=== PATIENT | female | born 1945 | race Caucasian/White ===

== ENCOUNTER 2018-04-09 11:23 | Inpatient (IN) | payer MEDICAID, MEDICARE ==
[~2018-04-09] VITALS: Ht 160 cm; Wt 92.1 kg
[2018-04-09] MEDS ORDERED: METF-815 PO (11:35)
[2018-04-09] MEDS ORDERED: GLIP5TAB12 PO (11:35)
[2018-04-09] MEDS ORDERED: PROP80CA43 PO (11:35)
[2018-04-09] MEDS ORDERED: OMEP10CA4 PO (11:35)
[2018-04-09] MEDS ORDERED: SITA25TA3 PO (11:35)
[2018-04-09] MEDS ORDERED: LOSA25TA12 PO (11:35)
[2018-04-09] MEDS ORDERED: SODIUM CHLORIDE 0.9% 1,000 ML IV ONE (12:06)
[2018-04-09] MEDS ORDERED: ONDANSETRON HCL 4MG/2ML INJ IV STA (12:06)
[2018-04-09] MEDS ORDERED: FAMOTIDINE 20MG/2ML VIAL IV STA (12:06)
[2018-04-09] MEDS ORDERED: MORPHINE SULFATE 4 MG/ML CPJ (NOT FOR IM USE) IV ONE (12:15)
[2018-04-09 12:35] LABS: BASOPHILS % 0.6 % (0.0-2.0); EOSINOPHILS % 1.2 % (0.0-5.0); HEMATOCRIT. 35.2 % (36.0-48.0); HEMOGLOBIN. 11.9 g/dL (12.0-16.0); LYMPHOCYTES % 13.7 % (20.0-50.0); MEAN CORPUSCULAR HEMOGLOBIN 31.1 pg (28.0-32.0); MEAN PLATELET VOLUME 9.9 fl (7.4-10.4); MONOCYTES % 11.5 % (2.0-8.0); PLATELET 111 x1000/uL (130-400); RED BLOOD CELL COUNT 3.83 mill/uL (4.2-5.4); RED CELL DISTRIBUTION WIDTH 15.6 % (11.6-14.6)
[2018-04-09 12:44] LABS: CHLORIDE 99 mEq/L (98-107)
[2018-04-09] MEDS ORDERED: DEXTROSE 50% WATER 50ML SYRINGE IV PRN (14:00)
[2018-04-09] MEDS ORDERED: HYDRALAZINE 20MG/ML VIAL IV PRN (14:00)
[2018-04-09] MEDS: ONDANSETRON HCL 4MG/2ML INJ IV PRN (19:13)
[2018-04-09] MEDS: MORPHINE SULFATE 4 MG/ML CPJ (NOT FOR IM USE) IV PRN ×2 (19:13→23:15)
[2018-04-09] MEDS: BLOOD SUGAR DIAGNOSTIC STRIP TEST SCH (21:00)
[2018-04-09 21:30] VITALS: BP 146/56
[2018-04-09 22:00] VITALS: BP 146/56
[2018-04-09] MEDS ORDERED: HYDRALAZINE 10 MG in SODIUM CHLORIDE 0.9% 49.5 ML IV PRN (22:30)
[2018-04-09] MEDS: INSULIN LISPRO 100 UNITS/ML SUBCUT SCH (23:30)
[2018-04-10] VITALS: BP 124/55
[2018-04-10 04:00] VITALS: BP 114/54
[2018-04-10] MEDS: DEXT 5%/0.45% NACL 1000ML 1,000 ML IV SCH ×3 (05:05→22:05)
[2018-04-10] MEDS: ONDANSETRON HCL 4MG/2ML INJ IV PRN ×3 (05:07→23:25)
[2018-04-10] MEDS: MORPHINE SULFATE 4 MG/ML CPJ (NOT FOR IM USE) IV PRN ×2 (05:11→10:43)
[2018-04-10 06:40] LABS: BASOPHILS % 0.5 % (0.0-2.0); EOSINOPHILS % 0.8 % (0.0-5.0); HEMATOCRIT. 33.3 % (36.0-48.0); LYMPHOCYTES % 10.1 % (20.0-50.0); MEAN CORPUSCULAR HEMOGLOBIN 30.7 pg (28.0-32.0); MEAN CORPUSCULAR VOLUME 92.8 fL (81.0-99.0); MEAN PLATELET VOLUME 10.3 fl (7.4-10.4); MONOCYTES % 13.3 % (2.0-8.0); NEUTROPHILS % 75.3 % (40.0-76.0); PLATELET 103 x1000/uL (130-400); RED BLOOD CELL COUNT 3.59 mill/uL (4.2-5.4); RED CELL DISTRIBUTION WIDTH 15.7 % (11.6-14.6)
[2018-04-10] MEDS: BLOOD SUGAR DIAGNOSTIC STRIP TEST SCH ×4 (07:30→21:00)
[2018-04-10] MEDS: INSULIN LISPRO 100 UNITS/ML SUBCUT SCH ×4 (07:50→22:30)
[2018-04-10 08:00] VITALS: BP 130/55
[2018-04-10] MEDS: PANTOPRAZOLE SODIUM 40 MG/VIAL IV SCH (09:13)
[2018-04-10 12:00] VITALS: BP 133/66
[2018-04-10] MEDS ORDERED: LACTULOSE 20G/30ML UDC PO PRN (13:45)
[2018-04-10] MEDS ORDERED: HYDROCODONE/ACETAMINOPHEN 5/325MG TABLET PO PRN (13:45)
[2018-04-10] MEDS ORDERED: BISACODYL 10MG SUPP PR PRN (13:45)
[2018-04-10 16:00] VITALS: BP 121/50
[2018-04-10 20:00] VITALS: BP 125/46
[2018-04-11] VITALS: BP 112/44
[2018-04-11 04:00] VITALS: BP 112/47
[2018-04-11] MEDS: METOCLOPRAMIDE HCL 10MG/2ML VIAL IV PRN (05:45)
[2018-04-11] MEDS: BLOOD SUGAR DIAGNOSTIC STRIP TEST SCH ×4 (05:53→21:51)
[2018-04-11] MEDS: DEXT 5%/0.45% NACL 1000ML 1,000 ML IV SCH (06:00)
[2018-04-11 08:00] VITALS: BP 118/58
[2018-04-11] MEDS: INSULIN LISPRO 100 UNITS/ML SUBCUT SCH ×4 (09:07→21:00)
[2018-04-11] MEDS: PANTOPRAZOLE SODIUM 40 MG/VIAL IV SCH (09:32)
[2018-04-11 12:00] VITALS: BP 122/49
[2018-04-11 13:10] LABS: HEMATOCRIT 35.9 % (36.0-48.0); HEMOGLOBIN 11.8 g/dL (12.0-16.0); MEAN CORPUSCULAR HEMOGLOBIN 30.5 pg (28.0-32.0); MEAN CORPUSCULAR VOLUME 92.7 fL (81.0-99.0); PLATELET 113 x1000/uL (130-400); RED BLOOD CELL COUNT 3.87 mill/uL (4.2-5.4); RED CELL DISTRIBUTION WIDTH 15.7 % (11.6-14.6)
[2018-04-11] MEDS ORDERED: OCTREOTIDE 1,000 MCG in SODIUM CHLORIDE 0.9% 100 ML IV SCH (15:00)
[2018-04-11] MEDS ORDERED: OCTREOTIDE ACETATE 50 MCG/ML 1ML IV SCH (15:00)
[2018-04-11 16:00] VITALS: BP 130/40
[2018-04-11 17:36] LABS: INR 1.2; PARTIAL THROMBOPLASTIN TIME 26.3 sec (23.4-31.0); PROTHROMBIN TIME 11.9 sec (9.1-11.1)
[2018-04-11 17:37] LABS: HEMATOCRIT 37.5 % (36.0-48.0); HEMOGLOBIN 12.4 g/dL (12.0-16.0)
[2018-04-11 20:00] VITALS: BP 134/40
[2018-04-11] MEDS: LORAZEPAM 2MG/ML CPJ IV PRN (22:12)
[2018-04-11 23:23] LABS: HEMATOCRIT 32.9 % (36.0-48.0)
[2018-04-12 04:00] VITALS: BP 144/69
[2018-04-12] MEDS: MORPHINE SULFATE 4 MG/ML CPJ (NOT FOR IM USE) IV PRN ×2 (04:05→21:03)
[2018-04-12] MEDS: BLOOD SUGAR DIAGNOSTIC STRIP TEST SCH ×4 (06:27→21:04)
[2018-04-12 06:37] LABS: BASOPHILS % 0.2 % (0.0-2.0); EOSINOPHILS % 2.5 % (0.0-5.0); HEMATOCRIT. 30.4 % (36.0-48.0); HEMOGLOBIN. 10.4 g/dL (12.0-16.0); LYMPHOCYTES % 11.3 % (20.0-50.0); MEAN CORPUSCULAR HEMOGLOBIN 31.1 pg (28.0-32.0); MEAN CORPUSCULAR VOLUME 91.1 fL (81.0-99.0); MEAN PLATELET VOLUME 9.7 fl (7.4-10.4); MONOCYTES % 14.9 % (2.0-8.0); NEUTROPHILS % 71.1 % (40.0-76.0); PLATELET 98 x1000/uL (130-400); RED BLOOD CELL COUNT 3.33 mill/uL (4.2-5.4); RED CELL DISTRIBUTION WIDTH 15.4 % (11.6-14.6)
[2018-04-12 08:00] VITALS: BP 140/71
[2018-04-12] MEDS: LORAZEPAM 2MG/ML CPJ IV PRN ×2 (08:29→15:51)
[2018-04-12] MEDS: PANTOPRAZOLE SODIUM 40 MG/VIAL IV SCH (08:29)
[2018-04-12] MEDS: INSULIN LISPRO 100 UNITS/ML SUBCUT SCH ×4 (08:38→21:00)
[2018-04-12 12:48] LABS: AMMONIA 88 uMol/L (<32)
[2018-04-12] MEDS: DEXT 5%/0.45% NACL 1000ML 1,000 ML IV SCH (15:31)
[2018-04-12 16:00] VITALS: BP 138/57
[2018-04-12 16:53] LABS: BG BASE EXCESS 2.5 mmol/L (-2.0-2.0); BG CARBOXYHEMOGLOBIN 0.5 % (0.5-1.5); BG DEOXYHEMOGLOBIN 8.2 % (0.0-5.0); BG HCO3 ACT 26.6 mmol/L (22.0-26.0); BG METHEMOGLOBIN 0.4 % (0.0-1.5); BG OXYGEN SATURATION 91.7 % (92.0-98.5); BG OXYHEMOGLOBIN 90.9 % (94.0-97.0); BG PCO2 39.3 mmHg (35.0-45.0); BG PH 7.448 (7.350-7.450); BG PO2 62.3 mmHg (75.0-100.0); BG SAMPLE SITE RIGHT RADIAL; BG TOTAL HEMOGLOBIN 11.6 g/dL (12.0-18.0); BG VENT MODE ROOM AIR
[2018-04-12 17:00] LABS: VITAMIN B12 SERUM 885 pg/mL (211-911)
[2018-04-12] MEDS ORDERED: OCTREOTIDE 1,000 MCG in SODIUM CHLORIDE 0.9% 98 ML IV PRN (17:30)
[2018-04-12] MEDS: SODIUM CHLORIDE 0.9% 1,000 ML IV SCH (18:04)
[2018-04-12] MEDS ORDERED: THIAMINE HCL 100 MG in SODIUM CHLORIDE 0.9% 49 ML IV NR (19:00)
[2018-04-12 20:00] VITALS: BP 137/90
[2018-04-12 22:00] VITALS: BP 117/47
[2018-04-13] VITALS (14 sets, daily range): BP systolic 98–177; BP diastolic 45–88
[2018-04-13] MEDS: RIFAXIMIN 550 MG TABLET PO SCH ×3 (00:20→20:42)
[2018-04-13] MEDS: LACTULOSE 20G/30ML UDC PO SCH ×4 (00:21→20:42)
[2018-04-13] MEDS: PROPRANOLOL HCL 10MG TABLET PO SCH ×5 (00:22→23:40)
[2018-04-13] MEDS: LORAZEPAM 2MG/ML CPJ IV PRN ×2 (02:33→23:28)
[2018-04-13] MEDS: SODIUM CHLORIDE 0.9% 1,000 ML IV SCH ×2 (05:33→18:43)
[2018-04-13 06:21] LABS: INR 1.2; PARTIAL THROMBOPLASTIN TIME 25.9 sec (23.4-31.0); PROTHROMBIN TIME 12.3 sec (9.1-11.1)
[2018-04-13 06:23] LABS: HEMATOCRIT. 32.2 % (36.0-48.0); HEMOGLOBIN. 10.8 g/dL (12.0-16.0); MEAN CORPUSCULAR HEMOGLOBIN 30.7 pg (28.0-32.0); MEAN CORPUSCULAR VOLUME 91.8 fL (81.0-99.0); MEAN PLATELET VOLUME 9.7 fl (7.4-10.4); PLATELET 111 x1000/uL (130-400); RED BLOOD CELL COUNT 3.51 mill/uL (4.2-5.4); RED CELL DISTRIBUTION WIDTH 15.4 % (11.6-14.6)
[2018-04-13 06:47] LABS: AMMONIA 143 uMol/L (<32)
[2018-04-13] MEDS: INSULIN LISPRO 100 UNITS/ML SUBCUT SCH ×4 (08:00→20:48)
[2018-04-13] MEDS: PANTOPRAZOLE SODIUM 40 MG/VIAL IV SCH (08:12)
[2018-04-13] MEDS: BLOOD SUGAR DIAGNOSTIC STRIP TEST SCH ×4 (08:12→20:48)
[2018-04-13 10:16] LABS: CLARITY URINE CLEAR (CLEAR); COLOR URINE YELLOW (YELLOW); KETONES URINE TRACE (NEGATIVE); LEUKOCYTE ESTERASE URINE NEGATIVE (NEGATIVE); NITRITE URINE POSITIVE (NEGATIVE); OCCULT BLOOD URINE NEGATIVE (NEGATIVE); PH URINE 6.5 (4.5-8.0); PROTEIN URINE NEGATIVE (NEGATIVE); SPECIFIC GRAVITY URINE 1.017 (1.005-1.030)
[2018-04-13] MEDS ORDERED: BISACODYL 10MG SUPP PR NR (11:00)
[2018-04-13] MEDS: CEFTRIAXONE 1 G PREMIX 50 ML IV SCH (13:43)
[2018-04-13 13:51] LABS: PLATELET ESTIMATE DECREASED
[2018-04-13] MEDS: MORPHINE SULFATE 4 MG/ML CPJ (NOT FOR IM USE) IV PRN (20:41)
[2018-04-14] VITALS (10 sets, daily range): BP systolic 90–162; BP diastolic 40–72
[2018-04-14] MEDS: LACTULOSE 20G/30ML UDC PO SCH ×3 (05:33→21:39)
[2018-04-14] MEDS: PROPRANOLOL HCL 10MG TABLET PO SCH ×4 (05:34→23:54)
[2018-04-14] MEDS: LORAZEPAM 2MG/ML CPJ IV PRN (05:34)
[2018-04-14 06:46] LABS: BASOPHILS % 0.9 % (0.0-2.0); EOSINOPHILS % 4.9 % (0.0-5.0); HEMATOCRIT. 33.6 % (36.0-48.0); HEMOGLOBIN. 11.2 g/dL (12.0-16.0); LYMPHOCYTES % 23.5 % (20.0-50.0); MEAN CORPUSCULAR HEMOGLOBIN 31.1 pg (28.0-32.0); MEAN CORPUSCULAR VOLUME 93.1 fL (81.0-99.0); MEAN PLATELET VOLUME 9.4 fl (7.4-10.4); MONOCYTES % 14.4 % (2.0-8.0); NEUTROPHILS % 56.3 % (40.0-76.0); PLATELET 121 x1000/uL (130-400); RED BLOOD CELL COUNT 3.61 mill/uL (4.2-5.4); RED CELL DISTRIBUTION WIDTH 15.7 % (11.6-14.6)
[2018-04-14 06:49] LABS: AMMONIA 81 uMol/L (<32)
[2018-04-14] MEDS: BLOOD SUGAR DIAGNOSTIC STRIP TEST SCH ×4 (07:49→20:32)
[2018-04-14] MEDS: INSULIN LISPRO 100 UNITS/ML SUBCUT SCH ×4 (07:49→20:32)
[2018-04-14] MEDS: PANTOPRAZOLE SODIUM 40 MG/VIAL IV SCH (09:31)
[2018-04-14] MEDS: RIFAXIMIN 550 MG TABLET PO SCH ×2 (09:32→20:31)
[2018-04-14] MEDS ORDERED: POTASSIUM CHLORIDE INJ 40 MEQ in DEXT 5% WATER 250 ML IV NR (10:30)
[2018-04-14] MEDS: CEFTRIAXONE 1 G PREMIX 50 ML IV SCH (12:10)
[2018-04-14] MEDS: SODIUM CHLORIDE 0.9% 1,000 ML IV SCH ×2 (20:33→20:34)
[2018-04-14] MEDS ORDERED: MORPHINE SULFATE 2 MG/ML CPJ (NOT FOR IM USE) IV PRN (22:00)
[2018-04-14] MEDS: MORPHINE SULFATE 4 MG/ML CPJ (NOT FOR IM USE) IV PRN (22:05)
[2018-04-15] MEDS: LORAZEPAM 2MG/ML CPJ IV PRN ×3 (01:25→23:54)
[2018-04-15 04:00] VITALS: BP 150/67
[2018-04-15] MEDS: LACTULOSE 20G/30ML UDC PO SCH ×3 (05:55→21:45)
[2018-04-15] MEDS: MORPHINE SULFATE 4 MG/ML CPJ (NOT FOR IM USE) IV PRN (05:56)
[2018-04-15] MEDS: PROPRANOLOL HCL 10MG TABLET PO SCH ×4 (05:58→23:53)
[2018-04-15 06:41] LABS: AMMONIA 74 uMol/L (<32)
[2018-04-15 06:44] LABS: HEMATOCRIT. 34.4 % (36.0-48.0); HEMOGLOBIN. 11.3 g/dL (12.0-16.0); MEAN CORPUSCULAR HEMOGLOBIN 30.3 pg (28.0-32.0); MEAN CORPUSCULAR VOLUME 92.6 fL (81.0-99.0); PLATELET 112 x1000/uL (130-400); RED BLOOD CELL COUNT 3.71 mill/uL (4.2-5.4); RED CELL DISTRIBUTION WIDTH 15.5 % (11.6-14.6)
[2018-04-15 07:15] LABS: CHLORIDE 110 mEq/L (98-107)
[2018-04-15] MEDS: BLOOD SUGAR DIAGNOSTIC STRIP TEST SCH ×4 (07:30→21:00)
[2018-04-15 08:00] VITALS: BP 108/48
[2018-04-15] MEDS: INSULIN LISPRO 100 UNITS/ML SUBCUT SCH ×4 (08:00→21:00)
[2018-04-15] MEDS: PANTOPRAZOLE SODIUM 40 MG/VIAL IV SCH (09:28)
[2018-04-15] MEDS: RIFAXIMIN 550 MG TABLET PO SCH ×2 (09:28→21:45)
[2018-04-15 12:00] VITALS: BP 116/61
[2018-04-15 12:00] LABS: PLATELET ESTIMATE SLIGHTLY DECREASED
[2018-04-15] MEDS: CEFTRIAXONE 1 G PREMIX 50 ML IV SCH (12:22)
[2018-04-15 16:00] VITALS: BP 147/77
[2018-04-15 20:00] VITALS: BP 121/70
[2018-04-15 22:00] VITALS: BP 127/65
[2018-04-16] VITALS (11 sets, daily range): BP systolic 110–185; BP diastolic 54–87
[2018-04-16] MEDS: SODIUM CHLORIDE 0.9% 1,000 ML IV SCH (02:12)
[2018-04-16] MEDS: LACTULOSE 20G/30ML UDC PO SCH ×3 (06:23→21:51)
[2018-04-16] MEDS: PROPRANOLOL HCL 10MG TABLET PO SCH ×3 (06:31→16:58)
[2018-04-16 06:54] LABS: BASOPHILS % 0.5 % (0.0-2.0); EOSINOPHILS % 2.2 % (0.0-5.0); HEMATOCRIT. 34.5 % (36.0-48.0); HEMOGLOBIN. 11.5 g/dL (12.0-16.0); LYMPHOCYTES % 11.6 % (20.0-50.0); MEAN CORPUSCULAR HEMOGLOBIN 30.9 pg (28.0-32.0); MEAN CORPUSCULAR VOLUME 92.8 fL (81.0-99.0); MEAN PLATELET VOLUME 9.7 fl (7.4-10.4); MONOCYTES % 12.1 % (2.0-8.0); NEUTROPHILS % 73.6 % (40.0-76.0); PLATELET 105 x1000/uL (130-400); RED BLOOD CELL COUNT 3.71 mill/uL (4.2-5.4); RED CELL DISTRIBUTION WIDTH 15.5 % (11.6-14.6)
[2018-04-16 06:58] LABS: AMMONIA 67 uMol/L (<32); CHLORIDE 112 mEq/L (98-107)
[2018-04-16] MEDS: BLOOD SUGAR DIAGNOSTIC STRIP TEST SCH ×4 (07:34→21:00)
[2018-04-16] MEDS: INSULIN LISPRO 100 UNITS/ML SUBCUT SCH ×4 (08:00→21:00)
[2018-04-16] MEDS: PANTOPRAZOLE SODIUM 40 MG/VIAL IV SCH (08:20)
[2018-04-16] MEDS: LORAZEPAM 2MG/ML CPJ IV PRN ×2 (08:21→16:58)
[2018-04-16] MEDS: RIFAXIMIN 550 MG TABLET PO SCH ×2 (08:21→21:51)
[2018-04-16] MEDS ORDERED: POTASSIUM CHLORIDE 20MEQ TABLET SR PO NR (11:00)
[2018-04-16] MEDS: CEFTRIAXONE 1 G PREMIX 50 ML IV SCH (13:23)
[2018-04-17] VITALS (11 sets, daily range): BP systolic 120–159; BP diastolic 42–80
[2018-04-17] MEDS: PROPRANOLOL HCL 10MG TABLET PO SCH ×4 (00:52→17:24)
[2018-04-17] MEDS: LACTULOSE 20G/30ML UDC PO SCH ×2 (06:56→21:02)
[2018-04-17] MEDS: BLOOD SUGAR DIAGNOSTIC STRIP TEST SCH ×4 (07:30→21:04)
[2018-04-17 07:33] LABS: AMMONIA 39 uMol/L (<32)
[2018-04-17 07:38] LABS: BASOPHILS % 0.8 % (0.0-2.0); EOSINOPHILS % 4.5 % (0.0-5.0); HEMATOCRIT. 41.3 % (36.0-48.0); HEMOGLOBIN. 12.8 g/dL (12.0-16.0); LYMPHOCYTES % 16.3 % (20.0-50.0); MEAN CORPUSCULAR HEMOGLOBIN 30.5 pg (28.0-32.0); MEAN CORPUSCULAR VOLUME 98.6 fL (81.0-99.0); MEAN PLATELET VOLUME 9.1 fl (7.4-10.4); MONOCYTES % 10.6 % (2.0-8.0); NEUTROPHILS % 67.8 % (40.0-76.0); PLATELET 98 x1000/uL (130-400); RED BLOOD CELL COUNT 4.19 mill/uL (4.2-5.4); RED CELL DISTRIBUTION WIDTH 16.7 % (11.6-14.6)
[2018-04-17 07:46] LABS: CHLORIDE 117 mEq/L (98-107)
[2018-04-17 07:48] LABS: PHOSPHORUS 2.7 mg/dL (2.5-4.9)
[2018-04-17] MEDS: INSULIN LISPRO 100 UNITS/ML SUBCUT SCH ×4 (08:00→21:04)
[2018-04-17] MEDS: PANTOPRAZOLE SODIUM 40 MG/VIAL IV SCH (09:14)
[2018-04-17] MEDS: RIFAXIMIN 550 MG TABLET PO SCH ×2 (09:14→21:04)
[2018-04-17] MEDS: CEFTRIAXONE 1 G PREMIX 50 ML IV SCH (12:15)
[2018-04-17] MEDS: ONDANSETRON HCL 4MG/2ML INJ IV PRN (21:04)
[2018-04-18] VITALS (7 sets, daily range): BP systolic 113–125; BP diastolic 43–72
[2018-04-18] MEDS: PROPRANOLOL HCL 10MG TABLET PO SCH ×5 (00:32→23:27)
[2018-04-18] MEDS: BLOOD SUGAR DIAGNOSTIC STRIP TEST SCH ×4 (06:15→21:30)
[2018-04-18] MEDS: LACTULOSE 20G/30ML UDC PO SCH ×3 (06:21→22:03)
[2018-04-18 06:30] LABS: AMMONIA 64 uMol/L (<32); CHLORIDE 114 mEq/L (98-107)
[2018-04-18] MEDS: INSULIN LISPRO 100 UNITS/ML SUBCUT SCH ×4 (07:33→22:08)
[2018-04-18] MEDS: PANTOPRAZOLE SODIUM 40 MG/VIAL IV SCH (09:51)
[2018-04-18] MEDS: RIFAXIMIN 550 MG TABLET PO SCH ×2 (09:51→22:03)
[2018-04-18 10:50] LABS: BASOPHILS % 0.7 % (0.0-2.0); EOSINOPHILS % 4.1 % (0.0-5.0); HEMATOCRIT. 35.5 % (36.0-48.0); HEMOGLOBIN. 11.8 g/dL (12.0-16.0); LYMPHOCYTES % 14.6 % (20.0-50.0); MEAN CORPUSCULAR HEMOGLOBIN 30.7 pg (28.0-32.0); MEAN PLATELET VOLUME 9.3 fl (7.4-10.4); MONOCYTES % 10.5 % (2.0-8.0); NEUTROPHILS % 70.1 % (40.0-76.0); PLATELET 105 x1000/uL (130-400); RED BLOOD CELL COUNT 3.84 mill/uL (4.2-5.4); RED CELL DISTRIBUTION WIDTH 15.8 % (11.6-14.6)
[2018-04-18 11:04] LABS: MEAN CORPUSCULAR VOLUME 92.5 fL (81.0-99.0)
[2018-04-18] MEDS: CEFTRIAXONE 1 G PREMIX 50 ML IV SCH (12:29)
[2018-04-18] MEDS: ONDANSETRON HCL 4MG/2ML INJ IV PRN (23:28)
[2018-04-18] MEDS: MORPHINE SULFATE 4 MG/ML CPJ (NOT FOR IM USE) IV PRN (23:28)
[2018-04-19] VITALS (9 sets, daily range): BP systolic 109–135; BP diastolic 44–76
[2018-04-19] MEDS: LACTULOSE 20G/30ML UDC PO SCH ×3 (06:44→21:48)
[2018-04-19] MEDS: PROPRANOLOL HCL 10MG TABLET PO SCH ×3 (06:45→18:00)
[2018-04-19] MEDS: BLOOD SUGAR DIAGNOSTIC STRIP TEST SCH ×4 (07:50→21:48)
[2018-04-19 07:51] LABS: BASOPHILS % 0.9 % (0.0-2.0); EOSINOPHILS % 5.7 % (0.0-5.0); HEMATOCRIT. 34.9 % (36.0-48.0); HEMOGLOBIN. 11.5 g/dL (12.0-16.0); LYMPHOCYTES % 20.2 % (20.0-50.0); MEAN CORPUSCULAR HEMOGLOBIN 30.3 pg (28.0-32.0); MEAN CORPUSCULAR VOLUME 92.3 fL (81.0-99.0); MEAN PLATELET VOLUME 9.1 fl (7.4-10.4); MONOCYTES % 13.9 % (2.0-8.0); NEUTROPHILS % 59.3 % (40.0-76.0); PLATELET 96 x1000/uL (130-400); RED BLOOD CELL COUNT 3.78 mill/uL (4.2-5.4); RED CELL DISTRIBUTION WIDTH 15.4 % (11.6-14.6)
[2018-04-19] MEDS: INSULIN LISPRO 100 UNITS/ML SUBCUT SCH ×4 (08:00→21:54)
[2018-04-19 08:14] LABS: AMMONIA 41 uMol/L (<32)
[2018-04-19] MEDS: CLOPIDOGREL 75MG TABLET PO SCH (09:47)
[2018-04-19] MEDS: RIFAXIMIN 550 MG TABLET PO SCH ×2 (09:47→21:48)
[2018-04-19] MEDS: PANTOPRAZOLE SODIUM 40 MG/VIAL IV SCH (09:47)
[2018-04-19] MEDS: CEFTRIAXONE 1 G PREMIX 50 ML IV SCH (13:05)
[2018-04-20] VITALS (9 sets, daily range): BP systolic 100–128; BP diastolic 51–71
[2018-04-20] MEDS: PROPRANOLOL HCL 10MG TABLET PO SCH ×5 (00:52→23:29)
[2018-04-20 07:03] LABS: BASOPHILS % 0.8 % (0.0-2.0); EOSINOPHILS % 4.8 % (0.0-5.0); HEMATOCRIT. 36.6 % (36.0-48.0); HEMOGLOBIN. 12.1 g/dL (12.0-16.0); LYMPHOCYTES % 17.2 % (20.0-50.0); MEAN CORPUSCULAR HEMOGLOBIN 30.4 pg (28.0-32.0); MEAN CORPUSCULAR VOLUME 92.1 fL (81.0-99.0); MEAN PLATELET VOLUME 9.1 fl (7.4-10.4); MONOCYTES % 11.4 % (2.0-8.0); NEUTROPHILS % 65.8 % (40.0-76.0); PLATELET 93 x1000/uL (130-400); RED BLOOD CELL COUNT 3.98 mill/uL (4.2-5.4); RED CELL DISTRIBUTION WIDTH 15.4 % (11.6-14.6)
[2018-04-20] MEDS: BLOOD SUGAR DIAGNOSTIC STRIP TEST SCH ×4 (07:04→21:06)
[2018-04-20] MEDS: LACTULOSE 20G/30ML UDC PO SCH ×3 (07:04→21:03)
[2018-04-20 07:41] LABS: AMMONIA 62 uMol/L (<32)
[2018-04-20] MEDS: PANTOPRAZOLE SODIUM 40 MG/VIAL IV SCH (08:17)
[2018-04-20] MEDS: RIFAXIMIN 550 MG TABLET PO SCH ×2 (08:17→21:03)
[2018-04-20] MEDS: CLOPIDOGREL 75MG TABLET PO SCH (08:17)
[2018-04-20] MEDS: INSULIN LISPRO 100 UNITS/ML SUBCUT SCH ×4 (08:18→21:20)
[2018-04-20] MEDS ORDERED: POTASSIUM CHLORIDE 20MEQ TABLET SR PO NR (17:29)
[2018-04-21] VITALS (10 sets, daily range): BP systolic 86–125; BP diastolic 44–59
[2018-04-21] MEDS: LACTULOSE 20G/30ML UDC PO SCH ×2 (05:20→21:56)
[2018-04-21] MEDS: PROPRANOLOL HCL 10MG TABLET PO SCH ×4 (05:21→23:29)
[2018-04-21 06:04] LABS: BASOPHILS % 0.8 % (0.0-2.0); EOSINOPHILS % 4.6 % (0.0-5.0); HEMATOCRIT. 34.5 % (36.0-48.0); HEMOGLOBIN. 11.4 g/dL (12.0-16.0); MEAN CORPUSCULAR HEMOGLOBIN 30.4 pg (28.0-32.0); MEAN CORPUSCULAR VOLUME 91.9 fL (81.0-99.0); MEAN PLATELET VOLUME 9.4 fl (7.4-10.4); MONOCYTES % 11.9 % (2.0-8.0); NEUTROPHILS % 62.7 % (40.0-76.0); PLATELET 93 x1000/uL (130-400); RED BLOOD CELL COUNT 3.75 mill/uL (4.2-5.4); RED CELL DISTRIBUTION WIDTH 15.6 % (11.6-14.6)
[2018-04-21 06:29] LABS: AMMONIA 32 uMol/L (<32)
[2018-04-21] MEDS: BLOOD SUGAR DIAGNOSTIC STRIP TEST SCH ×4 (07:33→21:00)
[2018-04-21] MEDS: INSULIN LISPRO 100 UNITS/ML SUBCUT SCH ×4 (07:34→21:57)
[2018-04-21] MEDS: PANTOPRAZOLE SODIUM 40 MG/VIAL IV SCH (08:53)
[2018-04-21] MEDS: CLOPIDOGREL 75MG TABLET PO SCH (08:53)
[2018-04-21] MEDS: RIFAXIMIN 550 MG TABLET PO SCH (08:53)
[2018-04-22] VITALS (10 sets, daily range): BP systolic 104–163; BP diastolic 45–64
[2018-04-22] MEDS: PROPRANOLOL HCL 10MG TABLET PO SCH ×3 (05:54→17:30)
[2018-04-22] MEDS: LACTULOSE 20G/30ML UDC PO SCH ×3 (05:54→21:02)
[2018-04-22 07:24] LABS: HEMATOCRIT 34.2 % (36.0-48.0); HEMOGLOBIN 11.3 g/dL (12.0-16.0); MEAN CORPUSCULAR HEMOGLOBIN 30.4 pg (28.0-32.0); PLATELET 94 x1000/uL (130-400); RED BLOOD CELL COUNT 3.71 mill/uL (4.2-5.4); RED CELL DISTRIBUTION WIDTH 15.1 % (11.6-14.6)
[2018-04-22 07:48] LABS: AMMONIA 67 uMol/L (<32)
[2018-04-22] MEDS: BLOOD SUGAR DIAGNOSTIC STRIP TEST SCH ×4 (07:50→21:00)
[2018-04-22] MEDS: INSULIN LISPRO 100 UNITS/ML SUBCUT SCH ×4 (07:50→21:03)
[2018-04-22] MEDS: PANTOPRAZOLE SODIUM 40 MG/VIAL IV SCH (08:36)
[2018-04-22] MEDS: CLOPIDOGREL 75MG TABLET PO SCH (08:36)
[2018-04-22] MEDS: METOCLOPRAMIDE HCL 10MG/2ML VIAL IV PRN (08:36)
[2018-04-22 08:50] LABS: CHLORIDE 110 mEq/L (98-107)
[2018-04-22] MEDS: RIFAXIMIN 550 MG TABLET PO SCH (21:03)
[2018-04-23] VITALS (8 sets, daily range): BP systolic 106–169; BP diastolic 34–119
[2018-04-23] MEDS: MORPHINE SULFATE 4 MG/ML CPJ (NOT FOR IM USE) IV PRN ×2 (00:03→10:46)
[2018-04-23] MEDS: ONDANSETRON HCL 4MG/2ML INJ IV PRN (04:42)
[2018-04-23] MEDS: PROPRANOLOL HCL 10MG TABLET PO SCH ×3 (06:00→12:28)
[2018-04-23] MEDS: LACTULOSE 20G/30ML UDC PO SCH ×2 (06:00→14:05)
[2018-04-23 07:22] LABS: HEMATOCRIT 36.9 % (36.0-48.0); HEMOGLOBIN 12.4 g/dL (12.0-16.0); MEAN CORPUSCULAR HEMOGLOBIN 30.9 pg (28.0-32.0); MEAN CORPUSCULAR VOLUME 91.7 fL (81.0-99.0); PLATELET 119 x1000/uL (130-400); RED BLOOD CELL COUNT 4.03 mill/uL (4.2-5.4); RED CELL DISTRIBUTION WIDTH 15.6 % (11.6-14.6)
[2018-04-23] MEDS: BLOOD SUGAR DIAGNOSTIC STRIP TEST SCH ×2 (07:30→12:22)
[2018-04-23 08:17] LABS: AMMONIA 48 uMol/L (<32)
[2018-04-23 08:21] LABS: INR 1.3; PROTHROMBIN TIME 13.4 sec (9.1-11.1)
[2018-04-23] MEDS: PANTOPRAZOLE SODIUM 40 MG/VIAL IV SCH (08:45)
[2018-04-23] MEDS: METOCLOPRAMIDE HCL 10MG/2ML VIAL IV PRN (08:45)
[2018-04-23] MEDS: RIFAXIMIN 550 MG TABLET PO SCH (08:45)
[2018-04-23 08:47] LABS: CHLORIDE 106 mEq/L (98-107)
[2018-04-23] MEDS: INSULIN LISPRO 100 UNITS/ML SUBCUT SCH ×2 (08:47→12:29)
[2018-04-23] MEDS ORDERED: FUROSEMIDE 40MG/4ML VIAL IVP SCH (10:15)
[2018-04-23] MEDS ORDERED: SPIRONOLACTONE 50MG TABLET PO SCH (10:15)
== END 2018-04-23 17:50 | DRG 242 ==
LOC: ER 11:23 → 6EST 13:35 → EDBEDREQTM 13:39 → EDBEDREQ 13:39 → ENRESERV 17:24 → EDBEDREQTM 20:17 → EDBEDREQ 20:17 → 6WST 04-11 17:51 → 5EST 04-12 14:23
PROVIDERS: ADMIT Internal Medicine; ATTEND Internal Medicine
DX: I85.11 Secondary esophageal varices with bleeding (principal); I63.9 Cerebral infarction, unspecified; G93.41 Metabolic encephalopathy; K56.600 Partial intestinal obstruction, unspecified as to cause; E72.20 Disorder of urea cycle metabolism, unspecified; D69.59 Other secondary thrombocytopenia; R65.10 Systemic inflammatory response syndrome (SIRS) of non-infectious origin without acute organ dysfunction; E88.09 Other disorders of plasma-protein metabolism, not elsewhere classified; K92.0 Hematemesis; K42.0 Umbilical hernia with obstruction, without gangrene; R18.8 Other ascites; I10 Essential (primary) hypertension; E44.1 Mild protein-calorie malnutrition; E66.01 Morbid (severe) obesity due to excess calories; E11.9 Type 2 diabetes mellitus without complications; K72.90 Hepatic failure, unspecified without coma; K74.60 Unspecified cirrhosis of liver; K52.9 Noninfective gastroenteritis and colitis, unspecified; N39.0 Urinary tract infection, site not specified; R16.1 Splenomegaly, not elsewhere classified; K43.6 Other and unspecified ventral hernia with obstruction, without gangrene; Z79.02 Long term (current) use of antithrombotics/antiplatelets; Z90.49 Acquired absence of other specified parts of digestive tract; Z79.899 Other long term (current) drug therapy; Z68.36 Body mass index [BMI] 36.0-36.9, adult
CPT/HCPCS: 36415; 36600; 70551; 71045; 74018; 74176; 76700; 76705; 80048; 80061; 80076; 82140; 82248; 82375; 82607; 82747; 82805; 82962; 83036; 83735; 83880; 84100; 84443; 85014; 85018; 85027; 92610; 93005; 93306; 93880; 93970; 96361; 96374; 96375; 97110; 97116; 97162; 99291; A6261; C1893; C9113; J0696; J1815; J1940; J2060; J2270; J2354; J2405; J2765; J3411; J3480; J3490; J7030; J7050; J7060; A4315

== ENCOUNTER 2018-05-23 11:13 | Inpatient (IN) | payer MEDICAID ==
[~2018-05-23] VITALS: Ht 157.5 cm; Wt 88.0 kg
[~2018-05-23 11:13] MED LIST: GLIP5TAB12 PO; LOSA25TA12 PO; METF-815 PO; OMEP10CA4 PO; PROP80CA43 PO; SITA25TA3 PO
[2018-05-23] MEDS ORDERED: ONDANSETRON HCL 4MG/2ML INJ IV STA (11:57)
[2018-05-23 12:29] LABS: BG BASE EXCESS 4.7 mmol/L (-2.0-2.0); BG CARBOXYHEMOGLOBIN 0.7 % (0.5-1.5); BG DEOXYHEMOGLOBIN 0.9 % (0.0-5.0); BG FRACTION INSPIRED OXYGEN 28; BG HCO3 ACT 25.4 mmol/L (22.0-26.0); BG OXYGEN SATURATION 99.1 % (92.0-98.5); BG OXYHEMOGLOBIN 98.4 % (94.0-97.0); BG PCO2 26.7 mmHg (35.0-45.0); BG PH 7.596 (7.350-7.450); BG SAMPLE SITE RIGHT BRACHIAL; BG TOTAL HEMOGLOBIN 12.7 g/dL (12.0-18.0); BG VENT MODE NASAL CANNULA
[2018-05-23] MEDS ORDERED: PIPERACILLIN/TAZ 3.375G PREMIX 50 ML IV ONE (12:30)
[2018-05-23 12:59] LABS: BASOPHILS % 0.4 % (0.0-2.0); HEMATOCRIT. 39.7 % (36.0-48.0); HEMOGLOBIN. 13.1 g/dL (12.0-16.0); LYMPHOCYTES % 9.5 % (20.0-50.0); MEAN CORPUSCULAR HEMOGLOBIN 30.2 pg (28.0-32.0); MEAN CORPUSCULAR VOLUME 91.6 fL (81.0-99.0); MEAN PLATELET VOLUME 10.3 fl (7.4-10.4); MONOCYTES % 3.6 % (2.0-8.0); NEUTROPHILS % 86.5 % (40.0-76.0); PLATELET 62 x1000/uL (130-400); RED BLOOD CELL COUNT 4.34 mill/uL (4.2-5.4); RED CELL DISTRIBUTION WIDTH 16.7 % (11.6-14.6)
[2018-05-23 13:04] LABS: CHLORIDE 94 mEq/L (98-107)
[2018-05-23 13:07] LABS: INR 1.4; PROTHROMBIN TIME 13.7 sec (9.1-11.1)
[2018-05-23 13:09] LABS: ETHANOL BLOOD < 10 mg/dL
[2018-05-23 14:17] LABS: CLARITY URINE CLOUDY (CLEAR); COLOR URINE YELLOW (YELLOW); KETONES URINE 1+ (NEGATIVE); LEUKOCYTE ESTERASE URINE 2+ (NEGATIVE); NITRITE URINE NEGATIVE (NEGATIVE); OCCULT BLOOD URINE 3+ (NEGATIVE); PROTEIN URINE NEGATIVE (NEGATIVE); SPECIFIC GRAVITY URINE 1.018 (1.005-1.030)
[2018-05-23 14:32] LABS: *AMPHETAMINES SCREEN URINE NEGATIVE (NEGATIVE); *BARBITURATES SCREEN URINE NEGATIVE (NEGATIVE); *BENZODIAZEPINES SCREEN URINE NEGATIVE (NEGATIVE); *COCAINE SCREEN URINE NEGATIVE (NEGATIVE); METHADONE URINE SCREEN NEGATIVE (NEGATIVE); OPIATES URINE SCREEN PRESUMTIVE POSITIVE (NEGATIVE)
[2018-05-23 14:33] LABS: CANNABINOID URINE SCREEN NEGATIVE (NEGATIVE); PHENCYCLIDINE URINE SCREEN NEGATIVE (NEGATIVE)
[2018-05-23] MEDS ORDERED: IPRATROPIUM/ALBUTEROL 0.5-3(2.5)MG/3ML NEB INH PRN (16:30)
[2018-05-23 16:34] VITALS: BP 95/38
[2018-05-23] MEDS ORDERED: SODIUM CHLORIDE 0.9% 2,000 ML IV NR (16:44)
[2018-05-23] MEDS: CEFTRIAXONE 1 G PREMIX 50 ML IV SCH (17:27)
[2018-05-23] MEDS ORDERED: SPIR50TA5 MT (17:39)
[2018-05-23] MEDS: SODIUM CHLORIDE 0.9% 1,000 ML IV SCH (17:56)
[2018-05-23 18:01] LABS: HEPATITIS B SURFACE ANTIGEN NEGATIVE
[2018-05-23 18:30] LABS: HEPATITIS A AB IGM NEGATIVE (NEGATIVE)
[2018-05-23] MEDS ORDERED: SODIUM CHLORIDE 0.9% 1,000 ML IV SCH (18:45)
[2018-05-23 20:00] VITALS: BP 114/40
[2018-05-23] MEDS: ONDANSETRON HCL 4MG/2ML INJ IV PRN (21:02)
[2018-05-23] MEDS: HYDROCODONE/ACETAMINOPHEN 5/325MG TABLET PO PRN (21:03)
[2018-05-24] VITALS (7 sets, daily range): BP systolic 101–123; BP diastolic 35–75
[2018-05-24] MEDS ORDERED: DEXTROSE 50% WATER 50ML SYRINGE IV PRN (05:45)
[2018-05-24 07:03] LABS: BASOPHILS % 0.2 % (0.0-2.0); EOSINOPHILS % 0.4 % (0.0-5.0); HEMATOCRIT. 37.7 % (36.0-48.0); HEMOGLOBIN. 12.6 g/dL (12.0-16.0); LYMPHOCYTES % 8.9 % (20.0-50.0); MEAN CORPUSCULAR HEMOGLOBIN 30.2 pg (28.0-32.0); MEAN CORPUSCULAR VOLUME 90.5 fL (81.0-99.0); NEUTROPHILS % 83.5 % (40.0-76.0); PLATELET 65 x1000/uL (130-400); RED BLOOD CELL COUNT 4.17 mill/uL (4.2-5.4); RED CELL DISTRIBUTION WIDTH 16.9 % (11.6-14.6)
[2018-05-24] MEDS: BLOOD SUGAR DIAGNOSTIC STRIP TEST SCH ×4 (07:59→21:00)
[2018-05-24] MEDS: SODIUM CHLORIDE 0.9% 1,000 ML IV SCH ×3 (08:35→23:32)
[2018-05-24] MEDS: INSULIN LISPRO 100 UNITS/ML SUBCUT SCH ×4 (08:40→21:48)
[2018-05-24] MEDS ORDERED: ASPIRIN 81MG TABLET PO SCH (09:00)
[2018-05-24] MEDS: RIFAXIMIN 550 MG TABLET PO SCH ×2 (09:00→20:57)
[2018-05-24] MEDS: CEFTRIAXONE 1 G PREMIX 50 ML IV SCH (18:28)
[2018-05-24] MEDS: THIAMINE HCL 100MG TABLET PO SCH (20:57)
[2018-05-24] MEDS: FOLIC ACID 1MG TABLET PO SCH (21:18)
[2018-05-24 21:44] LABS: INR 1.4; PROTHROMBIN TIME 14.1 sec (9.1-11.1)
[2018-05-24] MEDS: HYDROCODONE/ACETAMINOPHEN 5/325MG TABLET PO PRN (22:21)
[2018-05-25] VITALS (10 sets, daily range): BP systolic 104–127; BP diastolic 48–64
[2018-05-25 05:51] LABS: BASOPHILS % 0.3 % (0.0-2.0); EOSINOPHILS % 1.7 % (0.0-5.0); HEMATOCRIT. 36.7 % (36.0-48.0); HEMOGLOBIN. 12.4 g/dL (12.0-16.0); LYMPHOCYTES % 13.7 % (20.0-50.0); MEAN CORPUSCULAR HEMOGLOBIN 30.6 pg (28.0-32.0); MEAN CORPUSCULAR VOLUME 90.7 fL (81.0-99.0); MEAN PLATELET VOLUME 9.7 fl (7.4-10.4); MONOCYTES % 13.7 % (2.0-8.0); NEUTROPHILS % 70.6 % (40.0-76.0); PLATELET 53 x1000/uL (130-400); RED BLOOD CELL COUNT 4.05 mill/uL (4.2-5.4); RED CELL DISTRIBUTION WIDTH 17.1 % (11.6-14.6)
[2018-05-25 06:29] LABS: CHLORIDE 100 mEq/L (98-107)
[2018-05-25 06:36] LABS: PHOSPHORUS 3.8 mg/dL (2.5-4.9)
[2018-05-25] MEDS: BLOOD SUGAR DIAGNOSTIC STRIP TEST SCH ×4 (08:06→21:00)
[2018-05-25] MEDS: INSULIN LISPRO 100 UNITS/ML SUBCUT SCH ×4 (08:48→21:14)
[2018-05-25] MEDS: THIAMINE HCL 100MG TABLET PO SCH (08:48)
[2018-05-25] MEDS: CYANOCOBALAMIN 1000MCG TABLET PO SCH (08:48)
[2018-05-25] MEDS: FOLIC ACID 1MG TABLET PO SCH (08:48)
[2018-05-25] MEDS: RIFAXIMIN 550 MG TABLET PO SCH ×2 (09:46→21:14)
[2018-05-25] MEDS: SODIUM CHLORIDE 0.9% 1,000 ML IV SCH ×2 (09:52→21:18)
[2018-05-25] MEDS: MEROPENEM 1,000 MG in SODIUM CHLORIDE 0.9% 100 ML IV SCH (14:33)
[2018-05-26] VITALS (11 sets, daily range): BP systolic 102–123; BP diastolic 37–62
[2018-05-26] MEDS: MEROPENEM 1,000 MG in SODIUM CHLORIDE 0.9% 100 ML IV SCH ×2 (02:59→16:17)
[2018-05-26] MEDS: BLOOD SUGAR DIAGNOSTIC STRIP TEST SCH ×4 (07:30→21:18)
[2018-05-26 07:40] LABS: HEMATOCRIT. 36.9 % (36.0-48.0); HEMOGLOBIN. 12.3 g/dL (12.0-16.0); MEAN CORPUSCULAR VOLUME 89.9 fL (81.0-99.0); MEAN PLATELET VOLUME 10.1 fl (7.4-10.4); PLATELET 61 x1000/uL (130-400); RED CELL DISTRIBUTION WIDTH 16.9 % (11.6-14.6)
[2018-05-26 08:41] LABS: CHLORIDE 100 mEq/L (98-107)
[2018-05-26 08:49] LABS: PHOSPHORUS 2.9 mg/dL (2.5-4.9)
[2018-05-26] MEDS: RIFAXIMIN 550 MG TABLET PO SCH ×2 (10:08→21:18)
[2018-05-26] MEDS: CYANOCOBALAMIN 1000MCG TABLET PO SCH (10:08)
[2018-05-26] MEDS: FOLIC ACID 1MG TABLET PO SCH (10:08)
[2018-05-26] MEDS: THIAMINE HCL 100MG TABLET PO SCH (10:08)
[2018-05-26] MEDS: INSULIN LISPRO 100 UNITS/ML SUBCUT SCH ×4 (10:10→21:20)
[2018-05-26 10:42] LABS: PLATELET ESTIMATE DECREASED
[2018-05-26] MEDS: SODIUM CHLORIDE 0.9% 1,000 ML IV SCH (15:48)
[2018-05-26 22:16] LABS: SODIUM URINE RANDOM < 5 mEq/L
[2018-05-27] VITALS (8 sets, daily range): BP systolic 94–134; BP diastolic 41–68
[2018-05-27] MEDS: HYDROCODONE/ACETAMINOPHEN 5/325MG TABLET PO PRN (01:38)
[2018-05-27] MEDS: MEROPENEM 1,000 MG in SODIUM CHLORIDE 0.9% 100 ML IV SCH ×2 (02:42→15:02)
[2018-05-27] MEDS: SODIUM CHLORIDE 0.9% 1,000 ML IV SCH ×2 (02:43→11:37)
[2018-05-27 06:52] LABS: HEMATOCRIT. 40.4 % (36.0-48.0); HEMOGLOBIN. 13.4 g/dL (12.0-16.0); INR 1.4; MEAN CORPUSCULAR HEMOGLOBIN 30.3 pg (28.0-32.0); MEAN CORPUSCULAR VOLUME 91.1 fL (81.0-99.0); PARTIAL THROMBOPLASTIN TIME 29.2 sec (23.4-31.0); PLATELET 76 x1000/uL (130-400); PROTHROMBIN TIME 14.1 sec (9.1-11.1); RED BLOOD CELL COUNT 4.43 mill/uL (4.2-5.4); RED CELL DISTRIBUTION WIDTH 16.9 % (11.6-14.6)
[2018-05-27] MEDS: BLOOD SUGAR DIAGNOSTIC STRIP TEST SCH ×4 (08:03→21:14)
[2018-05-27] MEDS: THIAMINE HCL 100MG TABLET PO SCH (10:17)
[2018-05-27] MEDS: RIFAXIMIN 550 MG TABLET PO SCH ×2 (10:17→20:50)
[2018-05-27] MEDS: FOLIC ACID 1MG TABLET PO SCH (10:17)
[2018-05-27] MEDS: INSULIN LISPRO 100 UNITS/ML SUBCUT SCH ×4 (10:18→21:20)
[2018-05-27 10:28] LABS: PLATELET ESTIMATE DECREASED
[2018-05-27] MEDS: INSULIN GLARGINE UD 100 UNITS/ML SYR SUBCUT SCH ×2 (11:59→21:46)
[2018-05-27] MEDS: ONDANSETRON HCL 4MG/2ML INJ IV PRN (13:39)
[2018-05-27] MEDS: CYANOCOBALAMIN 1000MCG TABLET PO SCH (13:39)
[2018-05-27] MEDS ORDERED: SODIUM POLYSTYRENE SULFONATE 15 G/60 ML BOT PO NR ×2 (18:00→20:00)
[2018-05-28] VITALS (10 sets, daily range): BP systolic 92–134; BP diastolic 45–64
[2018-05-28] MEDS: SODIUM CHLORIDE 0.9% 1,000 ML IV SCH ×2 (02:54→14:59)
[2018-05-28] MEDS: ONDANSETRON HCL 4MG/2ML INJ IV PRN ×2 (02:58→20:25)
[2018-05-28] MEDS: MEROPENEM 1,000 MG in SODIUM CHLORIDE 0.9% 100 ML IV SCH ×2 (02:58→15:00)
[2018-05-28] MEDS: BLOOD SUGAR DIAGNOSTIC STRIP TEST SCH ×4 (07:30→21:01)
[2018-05-28 07:31] LABS: BASOPHILS % 0.4 % (0.0-2.0); EOSINOPHILS % 2.9 % (0.0-5.0); HEMATOCRIT. 40.9 % (36.0-48.0); HEMOGLOBIN. 13.6 g/dL (12.0-16.0); LYMPHOCYTES % 20.1 % (20.0-50.0); MEAN CORPUSCULAR HEMOGLOBIN 30.1 pg (28.0-32.0); MEAN CORPUSCULAR VOLUME 90.4 fL (81.0-99.0); MEAN PLATELET VOLUME 9.8 fl (7.4-10.4); MONOCYTES % 12.2 % (2.0-8.0); NEUTROPHILS % 64.4 % (40.0-76.0); PLATELET 99 x1000/uL (130-400); RED BLOOD CELL COUNT 4.52 mill/uL (4.2-5.4)
[2018-05-28 07:47] LABS: CHLORIDE 99 mEq/L (98-107)
[2018-05-28 07:54] LABS: PHOSPHORUS 3.7 mg/dL (2.5-4.9)
[2018-05-28] MEDS: INSULIN LISPRO 100 UNITS/ML SUBCUT SCH ×4 (08:00→22:14)
[2018-05-28] MEDS ORDERED: LIDOCAINE HCL 1% 20ML VIAL (Pyxis) INJ ONE (08:49)
[2018-05-28] MEDS ORDERED: SODIUM BICARBONATE 4% (2.4MEQ) 5ML VIAL IV ONE (08:49)
[2018-05-28] MEDS: RIFAXIMIN 550 MG TABLET PO SCH ×2 (12:03→20:24)
[2018-05-28] MEDS: THIAMINE HCL 100MG TABLET PO SCH (12:03)
[2018-05-28] MEDS: CYANOCOBALAMIN 1000MCG TABLET PO SCH (12:03)
[2018-05-28] MEDS: FOLIC ACID 1MG TABLET PO SCH (12:04)
[2018-05-28] MEDS: HYDROCODONE/ACETAMINOPHEN 5/325MG TABLET PO PRN (16:33)
[2018-05-28] MEDS ORDERED: SODIUM POLYSTYRENE SULFONATE 15 G/60 ML BOT NG NR (19:00)
[2018-05-28] MEDS ORDERED: LACTULOSE 20G/30ML UDC PO NR (20:30)
[2018-05-28] MEDS: INSULIN GLARGINE UD 100 UNITS/ML SYR SUBCUT SCH (22:09)
[2018-05-28] MEDS: ACETAMINOPHEN 325MG TABLET PO PRN (23:19)
[2018-05-29] VITALS (8 sets, daily range): BP systolic 86–113; BP diastolic 47–61
[2018-05-29] MEDS: MEROPENEM 1,000 MG in SODIUM CHLORIDE 0.9% 100 ML IV SCH ×2 (02:03→14:41)
[2018-05-29 08:16] LABS: INR 1.4; PARTIAL THROMBOPLASTIN TIME 29.1 sec (23.4-31.0); PROTHROMBIN TIME 14.3 sec (9.1-11.1)
[2018-05-29 08:17] LABS: HEMATOCRIT. 41.8 % (36.0-48.0); HEMOGLOBIN. 13.8 g/dL (12.0-16.0); MEAN CORPUSCULAR HEMOGLOBIN 30.2 pg (28.0-32.0); MEAN CORPUSCULAR VOLUME 91.4 fL (81.0-99.0); MEAN PLATELET VOLUME 10.1 fl (7.4-10.4); PLATELET 116 x1000/uL (130-400); RED BLOOD CELL COUNT 4.57 mill/uL (4.2-5.4); RED CELL DISTRIBUTION WIDTH 16.9 % (11.6-14.6)
[2018-05-29] MEDS: BLOOD SUGAR DIAGNOSTIC STRIP TEST SCH ×4 (08:27→21:00)
[2018-05-29 08:30] LABS: CHLORIDE 96 mEq/L (98-107)
[2018-05-29] MEDS: ONDANSETRON HCL 4MG/2ML INJ IV PRN ×3 (08:32→20:49)
[2018-05-29] MEDS: THIAMINE HCL 100MG TABLET PO SCH (08:33)
[2018-05-29] MEDS: FOLIC ACID 1MG TABLET PO SCH (08:33)
[2018-05-29] MEDS: CYANOCOBALAMIN 1000MCG TABLET PO SCH (08:33)
[2018-05-29] MEDS: INSULIN LISPRO 100 UNITS/ML SUBCUT SCH ×4 (08:34→21:01)
[2018-05-29] MEDS: RIFAXIMIN 550 MG TABLET PO SCH ×2 (08:36→20:48)
[2018-05-29 08:38] LABS: PHOSPHORUS 5.1 mg/dL (2.5-4.9)
[2018-05-29] MEDS: INSULIN GLARGINE UD 100 UNITS/ML SYR SUBCUT SCH ×2 (10:36→21:01)
[2018-05-29] MEDS: LACTULOSE 20G/30ML UDC PO SCH ×2 (13:25→20:49)
[2018-05-29 14:05] LABS: PLATELET ESTIMATE DECREASED
[2018-05-29] MEDS: SODIUM CHLORIDE 0.9% 1,000 ML IV SCH (18:57)
[2018-05-29] MEDS: ACETAMINOPHEN 325MG TABLET PO PRN (20:49)
[2018-05-30] VITALS (11 sets, daily range): BP systolic 88–120; BP diastolic 31–58
[2018-05-30] MEDS: MEROPENEM 1,000 MG in SODIUM CHLORIDE 0.9% 100 ML IV SCH ×2 (03:22→20:36)
[2018-05-30] MEDS: HYDROCODONE/ACETAMINOPHEN 5/325MG TABLET PO PRN (03:34)
[2018-05-30] MEDS: LACTULOSE 20G/30ML UDC PO SCH ×3 (06:41→21:02)
[2018-05-30] MEDS: BLOOD SUGAR DIAGNOSTIC STRIP TEST SCH ×4 (08:02→20:44)
[2018-05-30] MEDS: THIAMINE HCL 100MG TABLET PO SCH (08:07)
[2018-05-30] MEDS: CYANOCOBALAMIN 1000MCG TABLET PO SCH (08:07)
[2018-05-30] MEDS: INSULIN LISPRO 100 UNITS/ML SUBCUT SCH ×4 (08:07→20:49)
[2018-05-30] MEDS: FOLIC ACID 1MG TABLET PO SCH (08:07)
[2018-05-30] MEDS: RIFAXIMIN 550 MG TABLET PO SCH ×2 (08:07→20:36)
[2018-05-30] MEDS: ONDANSETRON HCL 4MG/2ML INJ IV PRN (08:49)
[2018-05-30] MEDS: INSULIN GLARGINE UD 100 UNITS/ML SYR SUBCUT SCH ×2 (09:55→21:11)
[2018-05-30 11:32] LABS: HEMATOCRIT. 41.9 % (36.0-48.0); HEMOGLOBIN. 13.9 g/dL (12.0-16.0); MEAN CORPUSCULAR HEMOGLOBIN 29.9 pg (28.0-32.0); MEAN CORPUSCULAR VOLUME 90.2 fL (81.0-99.0); PLATELET 125 x1000/uL (130-400); RED BLOOD CELL COUNT 4.65 mill/uL (4.2-5.4); RED CELL DISTRIBUTION WIDTH 16.6 % (11.6-14.6)
[2018-05-30 13:21] LABS: PLATELET ESTIMATE SLIGHTLY DECREASED
[2018-05-30] MEDS: SODIUM CHLORIDE 0.9% 1,000 ML IV SCH ×2 (14:12→23:49)
[2018-05-31] VITALS: BP 106/52
[2018-05-31 02:00] VITALS: BP 112/53
[2018-05-31 04:00] VITALS: BP 111/68
[2018-05-31] MEDS: LACTULOSE 20G/30ML UDC PO SCH ×3 (06:36→21:03)
[2018-05-31 07:19] LABS: CHLORIDE 99 mEq/L (98-107)
[2018-05-31 07:27] LABS: PHOSPHORUS 5.5 mg/dL (2.5-4.9)
[2018-05-31 07:39] LABS: HEMATOCRIT. 41.7 % (36.0-48.0); MEAN CORPUSCULAR HEMOGLOBIN 30.4 pg (28.0-32.0); MEAN CORPUSCULAR VOLUME 90.4 fL (81.0-99.0); MEAN PLATELET VOLUME 9.7 fl (7.4-10.4); PLATELET 124 x1000/uL (130-400); RED BLOOD CELL COUNT 4.61 mill/uL (4.2-5.4); RED CELL DISTRIBUTION WIDTH 16.8 % (11.6-14.6)
[2018-05-31] MEDS: BLOOD SUGAR DIAGNOSTIC STRIP TEST SCH ×4 (07:47→20:44)
[2018-05-31] MEDS: INSULIN LISPRO 100 UNITS/ML SUBCUT SCH ×4 (07:58→21:10)
[2018-05-31] MEDS: CYANOCOBALAMIN 1000MCG TABLET PO SCH (07:58)
[2018-05-31 08:00] VITALS: BP 97/46
[2018-05-31] MEDS: THIAMINE HCL 100MG TABLET PO SCH (08:51)
[2018-05-31] MEDS: FOLIC ACID 1MG TABLET PO SCH (08:51)
[2018-05-31] MEDS: RIFAXIMIN 550 MG TABLET PO SCH ×2 (08:51→20:50)
[2018-05-31] MEDS: SODIUM CHLORIDE 0.9% 1,000 ML IV SCH ×2 (08:52→20:44)
[2018-05-31] MEDS: INSULIN GLARGINE UD 100 UNITS/ML SYR SUBCUT SCH ×2 (10:12→21:12)
[2018-05-31 10:17] LABS: PLATELET ESTIMATE SLIGHTLY DECREASED
[2018-05-31] MEDS: HYDROCODONE/ACETAMINOPHEN 5/325MG TABLET PO PRN ×2 (11:43→20:46)
[2018-05-31 12:00] VITALS: BP 102/56
[2018-05-31 16:00] VITALS: BP 97/60
[2018-05-31] MEDS: MEROPENEM 1,000 MG in SODIUM CHLORIDE 0.9% 100 ML IV SCH (20:44)
[2018-05-31] MEDS: ONDANSETRON HCL 4MG/2ML INJ IV PRN ×2 (22:48→22:50)
[2018-06-01] MEDS: ACETAMINOPHEN 325MG TABLET PO PRN (00:15)
[2018-06-01] MEDS: SODIUM CHLORIDE 0.9% 1,000 ML IV SCH ×2 (03:32→21:36)
[2018-06-01] MEDS: LACTULOSE 20G/30ML UDC PO SCH ×3 (05:33→22:37)
[2018-06-01 07:38] LABS: BASOPHILS % 0.2 % (0.0-2.0); EOSINOPHILS % 1.5 % (0.0-5.0); HEMATOCRIT. 42.6 % (36.0-48.0); HEMOGLOBIN. 14.1 g/dL (12.0-16.0); MEAN CORPUSCULAR HEMOGLOBIN 29.8 pg (28.0-32.0); MEAN CORPUSCULAR VOLUME 90.2 fL (81.0-99.0); MEAN PLATELET VOLUME 9.8 fl (7.4-10.4); MONOCYTES % 7.7 % (2.0-8.0); NEUTROPHILS % 74.6 % (40.0-76.0); PLATELET 134 x1000/uL (130-400); RED BLOOD CELL COUNT 4.72 mill/uL (4.2-5.4); RED CELL DISTRIBUTION WIDTH 16.9 % (11.6-14.6)
[2018-06-01] MEDS: BLOOD SUGAR DIAGNOSTIC STRIP TEST SCH ×4 (07:56→21:54)
[2018-06-01 08:00] VITALS: BP 96/46
[2018-06-01 08:58] LABS: CHLORIDE 97 mEq/L (98-107)
[2018-06-01] MEDS: RIFAXIMIN 550 MG TABLET PO SCH ×2 (09:00→20:48)
[2018-06-01] MEDS: FOLIC ACID 1MG TABLET PO SCH (09:00)
[2018-06-01] MEDS: THIAMINE HCL 100MG TABLET PO SCH (09:00)
[2018-06-01] MEDS: INSULIN LISPRO 100 UNITS/ML SUBCUT SCH ×4 (09:01→20:49)
[2018-06-01] MEDS: CYANOCOBALAMIN 1000MCG TABLET PO SCH (09:01)
[2018-06-01 09:07] LABS: PHOSPHORUS 6.6 mg/dL (2.5-4.9)
[2018-06-01 09:45] VITALS: BP 100/58
[2018-06-01] MEDS: INSULIN GLARGINE UD 100 UNITS/ML SYR SUBCUT SCH ×2 (09:51→22:38)
[2018-06-01 12:00] VITALS: BP 89/57
[2018-06-01 16:00] VITALS: BP 97/44
[2018-06-01] MEDS: HYDROCODONE/ACETAMINOPHEN 5/325MG TABLET PO PRN (16:31)
[2018-06-01 20:00] VITALS: BP 100/48
[2018-06-01] MEDS: ONDANSETRON HCL 4MG/2ML INJ IV PRN (20:48)
[2018-06-01] MEDS: MEROPENEM 1,000 MG in SODIUM CHLORIDE 0.9% 100 ML IV SCH (23:53)
[2018-06-02] VITALS: BP 95/42
[2018-06-02 04:00] VITALS: BP 94/56
[2018-06-02] MEDS: CYANOCOBALAMIN 1000MCG TABLET PO SCH (06:20)
[2018-06-02] MEDS: LACTULOSE 20G/30ML UDC PO SCH ×3 (06:20→18:56)
[2018-06-02] MEDS: SODIUM CHLORIDE 0.9% 1,000 ML IV SCH ×2 (06:30→17:36)
[2018-06-02] MEDS: INSULIN LISPRO 100 UNITS/ML SUBCUT SCH ×4 (06:31→21:38)
[2018-06-02] MEDS: BLOOD SUGAR DIAGNOSTIC STRIP TEST SCH ×4 (06:31→21:29)
[2018-06-02 07:33] LABS: BASOPHILS % 0.1 % (0.0-2.0); EOSINOPHILS % 0.8 % (0.0-5.0); HEMATOCRIT. 40.7 % (36.0-48.0); HEMOGLOBIN. 13.2 g/dL (12.0-16.0); LYMPHOCYTES % 11.8 % (20.0-50.0); MEAN CORPUSCULAR HEMOGLOBIN 29.7 pg (28.0-32.0); MEAN CORPUSCULAR VOLUME 91.3 fL (81.0-99.0); MEAN PLATELET VOLUME 9.7 fl (7.4-10.4); MONOCYTES % 7.4 % (2.0-8.0); NEUTROPHILS % 79.9 % (40.0-76.0); PLATELET 133 x1000/uL (130-400); RED BLOOD CELL COUNT 4.46 mill/uL (4.2-5.4); RED CELL DISTRIBUTION WIDTH 17.1 % (11.6-14.6)
[2018-06-02 08:00] VITALS: BP 125/60
[2018-06-02 08:11] LABS: CHLORIDE 99 mEq/L (98-107)
[2018-06-02 08:26] LABS: PHOSPHORUS 6.2 mg/dL (2.5-4.9)
[2018-06-02] MEDS: FOLIC ACID 1MG TABLET PO SCH (08:47)
[2018-06-02] MEDS: RIFAXIMIN 550 MG TABLET PO SCH ×2 (08:47→21:25)
[2018-06-02] MEDS: THIAMINE HCL 100MG TABLET PO SCH (08:47)
[2018-06-02] MEDS: INSULIN GLARGINE UD 100 UNITS/ML SYR SUBCUT SCH ×2 (10:30→21:38)
[2018-06-02] MEDS: ONDANSETRON HCL 4MG/2ML INJ IV PRN ×2 (10:41→17:29)
[2018-06-02] MEDS ORDERED: SODIUM POLYSTYRENE SULFONATE 15 G/60 ML BOT PO NR (11:00)
[2018-06-02 12:00] VITALS: BP 96/47
[2018-06-02] MEDS: SEVELAMER CARBONATE 800 MG TABLET PO SCH ×2 (13:36→17:29)
[2018-06-02 16:00] VITALS: BP 90/48
[2018-06-02 20:00] VITALS: BP 107/38
[2018-06-02 21:15] LABS: AMYLASE 70 IU/L (25-115)
[2018-06-02] MEDS: MEROPENEM 1,000 MG in SODIUM CHLORIDE 0.9% 100 ML IV SCH (23:41)
[2018-06-03] VITALS: BP 112/38
[2018-06-03] MEDS: LACTULOSE 20G/30ML UDC PO SCH ×4 (00:22→17:49)
[2018-06-03] MEDS: SODIUM CHLORIDE 0.9% 1,000 ML IV SCH ×3 (02:53→23:15)
[2018-06-03 04:00] VITALS: BP 108/44
[2018-06-03] MEDS: HYDROCODONE/ACETAMINOPHEN 5/325MG TABLET PO PRN (05:02)
[2018-06-03 05:39] LABS: BASOPHILS % 0.2 % (0.0-2.0); EOSINOPHILS % 0.7 % (0.0-5.0); HEMATOCRIT. 41.9 % (36.0-48.0); HEMOGLOBIN. 13.9 g/dL (12.0-16.0); LYMPHOCYTES % 10.7 % (20.0-50.0); MEAN CORPUSCULAR HEMOGLOBIN 30.4 pg (28.0-32.0); MEAN CORPUSCULAR VOLUME 91.6 fL (81.0-99.0); MEAN PLATELET VOLUME 9.7 fl (7.4-10.4); MONOCYTES % 6.7 % (2.0-8.0); NEUTROPHILS % 81.7 % (40.0-76.0); PLATELET 119 x1000/uL (130-400); RED BLOOD CELL COUNT 4.57 mill/uL (4.2-5.4); RED CELL DISTRIBUTION WIDTH 17.2 % (11.6-14.6)
[2018-06-03 05:58] LABS: PHOSPHORUS 6.3 mg/dL (2.5-4.9)
[2018-06-03] MEDS: BLOOD SUGAR DIAGNOSTIC STRIP TEST SCH ×4 (06:01→20:56)
[2018-06-03] MEDS: INSULIN LISPRO 100 UNITS/ML SUBCUT SCH ×4 (06:01→21:03)
[2018-06-03 08:00] VITALS: BP 91/34
[2018-06-03] MEDS: THIAMINE HCL 100MG TABLET PO SCH (09:58)
[2018-06-03] MEDS: RIFAXIMIN 550 MG TABLET PO SCH ×2 (09:58→20:56)
[2018-06-03] MEDS: FOLIC ACID 1MG TABLET PO SCH (09:58)
[2018-06-03] MEDS: CYANOCOBALAMIN 1000MCG TABLET PO SCH (09:58)
[2018-06-03] MEDS: SEVELAMER CARBONATE 800 MG TABLET PO SCH ×3 (09:58→17:47)
[2018-06-03] MEDS: INSULIN GLARGINE UD 100 UNITS/ML SYR SUBCUT SCH ×2 (10:50→22:56)
[2018-06-03 12:00] VITALS: BP 92/46
[2018-06-03 16:00] VITALS: BP 109/54
[2018-06-03 20:00] VITALS: BP 129/51
[2018-06-03] MEDS: MEROPENEM 1,000 MG in SODIUM CHLORIDE 0.9% 100 ML IV SCH (23:14)
[2018-06-04] VITALS (8 sets, daily range): BP systolic 81–135; BP diastolic 36–79
[2018-06-04] MEDS: LACTULOSE 20G/30ML UDC PO SCH ×5 (03:07→23:46)
[2018-06-04] MEDS: BLOOD SUGAR DIAGNOSTIC STRIP TEST SCH ×4 (06:38→20:28)
[2018-06-04] MEDS: INSULIN LISPRO 100 UNITS/ML SUBCUT SCH ×4 (06:38→20:28)
[2018-06-04 07:37] LABS: BASOPHILS % 0.2 % (0.0-2.0); EOSINOPHILS % 0.9 % (0.0-5.0); HEMOGLOBIN. 13.6 g/dL (12.0-16.0); LYMPHOCYTES % 10.4 % (20.0-50.0); MEAN CORPUSCULAR HEMOGLOBIN 30.1 pg (28.0-32.0); MEAN CORPUSCULAR VOLUME 92.7 fL (81.0-99.0); MEAN PLATELET VOLUME 9.4 fl (7.4-10.4); MONOCYTES % 7.5 % (2.0-8.0); PLATELET 109 x1000/uL (130-400); RED BLOOD CELL COUNT 4.53 mill/uL (4.2-5.4); RED CELL DISTRIBUTION WIDTH 17.7 % (11.6-14.6)
[2018-06-04] MEDS: SEVELAMER CARBONATE 800 MG TABLET PO SCH ×3 (08:26→17:12)
[2018-06-04] MEDS: CYANOCOBALAMIN 1000MCG TABLET PO SCH (08:26)
[2018-06-04] MEDS: FOLIC ACID 1MG TABLET PO SCH (08:26)
[2018-06-04] MEDS: RIFAXIMIN 550 MG TABLET PO SCH ×2 (08:26→20:28)
[2018-06-04] MEDS: THIAMINE HCL 100MG TABLET PO SCH (08:26)
[2018-06-04 08:45] LABS: PHOSPHORUS 6.3 mg/dL (2.5-4.9)
[2018-06-04] MEDS: INSULIN GLARGINE UD 100 UNITS/ML SYR SUBCUT SCH ×2 (10:32→22:56)
[2018-06-04] MEDS: SODIUM CHLORIDE 0.9% 1,000 ML IV SCH ×2 (10:36→17:52)
[2018-06-04 16:32] LABS: SODIUM URINE RANDOM < 5 mEq/L
[2018-06-04] MEDS: MEROPENEM 1,000 MG in SODIUM CHLORIDE 0.9% 100 ML IV SCH (22:44)
[2018-06-05] VITALS (7 sets, daily range): BP systolic 82–108; BP diastolic 42–58
[2018-06-05] MEDS: ACETAMINOPHEN 325MG TABLET PO PRN (03:12)
[2018-06-05] MEDS: SODIUM CHLORIDE 0.9% 1,000 ML IV SCH ×4 (03:18→22:27)
[2018-06-05] MEDS: BLOOD SUGAR DIAGNOSTIC STRIP TEST SCH ×4 (06:13→20:23)
[2018-06-05] MEDS: LACTULOSE 20G/30ML UDC PO SCH ×4 (06:13→23:38)
[2018-06-05] MEDS: INSULIN LISPRO 100 UNITS/ML SUBCUT SCH ×4 (07:03→20:24)
[2018-06-05] MEDS: THIAMINE HCL 100MG TABLET PO SCH (08:31)
[2018-06-05] MEDS: RIFAXIMIN 550 MG TABLET PO SCH ×2 (08:31→20:31)
[2018-06-05] MEDS: CYANOCOBALAMIN 1000MCG TABLET PO SCH (08:31)
[2018-06-05] MEDS: FOLIC ACID 1MG TABLET PO SCH (08:31)
[2018-06-05] MEDS: SEVELAMER CARBONATE 800 MG TABLET PO SCH ×3 (08:31→17:30)
[2018-06-05] MEDS: ONDANSETRON HCL 4MG/2ML INJ IV PRN (10:06)
[2018-06-05] MEDS: INSULIN GLARGINE UD 100 UNITS/ML SYR SUBCUT SCH ×2 (10:07→22:33)
[2018-06-05 10:09] LABS: BASOPHILS % 0.3 % (0.0-2.0); EOSINOPHILS % 0.7 % (0.0-5.0); HEMATOCRIT. 42.4 % (36.0-48.0); HEMOGLOBIN. 13.8 g/dL (12.0-16.0); LYMPHOCYTES % 9.9 % (20.0-50.0); MEAN CORPUSCULAR HEMOGLOBIN 30.1 pg (28.0-32.0); MEAN CORPUSCULAR VOLUME 92.8 fL (81.0-99.0); MEAN PLATELET VOLUME 9.7 fl (7.4-10.4); MONOCYTES % 7.2 % (2.0-8.0); NEUTROPHILS % 81.9 % (40.0-76.0); PLATELET 127 x1000/uL (130-400); RED BLOOD CELL COUNT 4.57 mill/uL (4.2-5.4); RED CELL DISTRIBUTION WIDTH 18.1 % (11.6-14.6)
[2018-06-05 10:37] LABS: CHLORIDE 101 mEq/L (98-107)
[2018-06-05 10:49] LABS: T4 FREE 0.72 ng/dL (0.76-1.46)
[2018-06-05] MEDS ORDERED: SODIUM CHLORIDE 0.9% 500 ML IV PRN (12:00)
[2018-06-05] MEDS: MEROPENEM 1,000 MG in SODIUM CHLORIDE 0.9% 100 ML IV SCH (22:28)
[2018-06-06] VITALS (16 sets, daily range): BP systolic 87–123; BP diastolic 45–77
[2018-06-06] MEDS: SEVELAMER CARBONATE 800 MG TABLET PO SCH ×3 (06:50→17:21)
[2018-06-06] MEDS: CYANOCOBALAMIN 1000MCG TABLET PO SCH (06:50)
[2018-06-06] MEDS: ACETAMINOPHEN 325MG TABLET PO PRN (06:51)
[2018-06-06] MEDS: LACTULOSE 20G/30ML UDC PO SCH ×3 (06:51→17:21)
[2018-06-06] MEDS: BLOOD SUGAR DIAGNOSTIC STRIP TEST SCH ×4 (06:51→20:34)
[2018-06-06] MEDS: INSULIN LISPRO 100 UNITS/ML SUBCUT SCH ×4 (06:51→20:34)
[2018-06-06 07:43] LABS: BASOPHILS % 0.3 % (0.0-2.0); EOSINOPHILS % 0.5 % (0.0-5.0); HEMATOCRIT. 41.9 % (36.0-48.0); HEMOGLOBIN. 13.8 g/dL (12.0-16.0); MEAN CORPUSCULAR HEMOGLOBIN 30.4 pg (28.0-32.0); MEAN CORPUSCULAR VOLUME 92.8 fL (81.0-99.0); MEAN PLATELET VOLUME 9.6 fl (7.4-10.4); MONOCYTES % 7.3 % (2.0-8.0); NEUTROPHILS % 83.9 % (40.0-76.0); PLATELET 116 x1000/uL (130-400); RED BLOOD CELL COUNT 4.52 mill/uL (4.2-5.4); RED CELL DISTRIBUTION WIDTH 18.4 % (11.6-14.6)
[2018-06-06 07:47] LABS: INR 1.9; PROTHROMBIN TIME 18.7 sec (9.1-11.1)
[2018-06-06 08:00] LABS: CHLORIDE 104 mEq/L (98-107)
[2018-06-06] MEDS: FOLIC ACID 1MG TABLET PO SCH (08:39)
[2018-06-06] MEDS: THIAMINE HCL 100MG TABLET PO SCH (08:39)
[2018-06-06] MEDS: SODIUM CHLORIDE 0.9% 1,000 ML IV SCH ×2 (08:41→17:21)
[2018-06-06] MEDS: RIFAXIMIN 550 MG TABLET PO SCH ×2 (09:00→20:33)
[2018-06-06] MEDS: INSULIN GLARGINE UD 100 UNITS/ML SYR SUBCUT SCH ×2 (10:00→22:22)
[2018-06-06] MEDS ORDERED: LIDOCAINE HCL 1% 20ML VIAL (Pyxis) INJ ONE (10:01)
[2018-06-06] MEDS ORDERED: HEPARIN SODIUM 1,000 UNIT/1ML VIAL IV NR (14:00)
[2018-06-06] MEDS ORDERED: ALBUMIN HUMAN 25GM/100ML (25%) IV NR (15:00)
[2018-06-06] MEDS: MEROPENEM 1,000 MG in SODIUM CHLORIDE 0.9% 100 ML IV SCH (22:22)
[2018-06-07] VITALS (57 sets, daily range): BP systolic 88–138; BP diastolic 46–113
[2018-06-07] MEDS: LACTULOSE 20G/30ML UDC PO SCH ×6 (00:51→23:15)
[2018-06-07] MEDS: SODIUM CHLORIDE 0.9% 1,000 ML IV SCH ×3 (03:21→21:57)
[2018-06-07 06:58] LABS: EOSINOPHILS % 0.6 % (0.0-5.0); HEMATOCRIT. 36.1 % (36.0-48.0); HEMOGLOBIN. 11.6 g/dL (12.0-16.0); LYMPHOCYTES % 10.1 % (20.0-50.0); MEAN CORPUSCULAR VOLUME 93.7 fL (81.0-99.0); MEAN PLATELET VOLUME 9.1 fl (7.4-10.4); MONOCYTES % 9.7 % (2.0-8.0); NEUTROPHILS % 78.6 % (40.0-76.0); PLATELET 63 x1000/uL (130-400); RED BLOOD CELL COUNT 3.86 mill/uL (4.2-5.4); RED CELL DISTRIBUTION WIDTH 18.2 % (11.6-14.6)
[2018-06-07 07:05] LABS: INR 1.4; PROTHROMBIN TIME 14.3 sec (9.1-11.1)
[2018-06-07 07:30] LABS: PHOSPHORUS 5.8 mg/dL (2.5-4.9)
[2018-06-07] MEDS: BLOOD SUGAR DIAGNOSTIC STRIP TEST SCH ×4 (07:50→21:55)
[2018-06-07] MEDS: CYANOCOBALAMIN 1000MCG TABLET PO SCH ×2 (08:20→13:04)
[2018-06-07] MEDS: INSULIN LISPRO 100 UNITS/ML SUBCUT SCH ×4 (08:20→21:00)
[2018-06-07] MEDS: SEVELAMER CARBONATE 800 MG TABLET PO SCH ×3 (08:20→18:10)
[2018-06-07] MEDS: RIFAXIMIN 550 MG TABLET PO SCH ×2 (10:31→21:55)
[2018-06-07] MEDS: THIAMINE HCL 100MG TABLET PO SCH (10:31)
[2018-06-07] MEDS: FOLIC ACID 1MG TABLET PO SCH (10:31)
[2018-06-07] MEDS: ONDANSETRON 4MG ODT PO PRN ×2 (10:31→18:10)
[2018-06-07] MEDS: INSULIN GLARGINE UD 100 UNITS/ML SYR SUBCUT SCH ×2 (10:34→21:56)
[2018-06-07] MEDS ORDERED: SODIUM BICARBONATE 4% (2.4MEQ) 5ML VIAL IV ONE (13:21)
[2018-06-07] MEDS ORDERED: LIDOCAINE HCL 1% 20ML VIAL (Pyxis) INJ ONE (13:22)
[2018-06-07] MEDS: ONDANSETRON HCL 4MG/2ML INJ IV PRN (14:49)
[2018-06-07] MEDS: TRAMADOL 50MG TABLET PO PRN (14:50)
[2018-06-07] MEDS ORDERED: ALBUMIN HUMAN 25GM/100ML (25%) IV NR (17:26)
[2018-06-07] MEDS ORDERED: NOREPINEPHRINE 16 MG in DEXT 5% WATER 234 ML IV PRN (18:30)
[2018-06-07] MEDS: MEROPENEM 1,000 MG in SODIUM CHLORIDE 0.9% 100 ML IV SCH (21:57)
[2018-06-08] VITALS (37 sets, daily range): BP systolic 93–134; BP diastolic 50–89
[2018-06-08] MEDS: TRAMADOL 50MG TABLET PO PRN ×2 (01:52→09:29)
[2018-06-08] MEDS: LACTULOSE 20G/30ML UDC PO SCH ×3 (05:53→17:29)
[2018-06-08 06:47] LABS: HEMATOCRIT. 34.8 % (36.0-48.0); HEMOGLOBIN. 11.3 g/dL (12.0-16.0); MEAN CORPUSCULAR HEMOGLOBIN 30.1 pg (28.0-32.0); MEAN CORPUSCULAR VOLUME 92.6 fL (81.0-99.0); MEAN PLATELET VOLUME 9.2 fl (7.4-10.4); PLATELET 61 x1000/uL (130-400); RED BLOOD CELL COUNT 3.76 mill/uL (4.2-5.4); RED CELL DISTRIBUTION WIDTH 18.3 % (11.6-14.6)
[2018-06-08] MEDS: ONDANSETRON HCL 4MG/2ML INJ IV PRN ×2 (06:58→12:13)
[2018-06-08] MEDS: INSULIN LISPRO 100 UNITS/ML SUBCUT SCH ×4 (07:49→21:22)
[2018-06-08] MEDS: BLOOD SUGAR DIAGNOSTIC STRIP TEST SCH ×4 (07:49→21:00)
[2018-06-08] MEDS: SEVELAMER CARBONATE 800 MG TABLET PO SCH ×3 (08:20→17:29)
[2018-06-08 08:51] LABS: PLATELET ESTIMATE DECREASED
[2018-06-08] MEDS: SODIUM CHLORIDE 0.9% 1,000 ML IV SCH (09:00)
[2018-06-08] MEDS: CYANOCOBALAMIN 1000MCG TABLET PO SCH (09:28)
[2018-06-08] MEDS: RIFAXIMIN 550 MG TABLET PO SCH ×2 (09:29→20:44)
[2018-06-08] MEDS: FOLIC ACID 1MG TABLET PO SCH (09:29)
[2018-06-08] MEDS: THIAMINE HCL 100MG TABLET PO SCH (09:29)
[2018-06-08] MEDS: INSULIN GLARGINE UD 100 UNITS/ML SYR SUBCUT SCH ×2 (09:30→22:38)
[2018-06-08] MEDS: DEXT 5%/0.9% NACL 1,000 ML IV SCH ×2 (10:12→14:04)
[2018-06-08] MEDS ORDERED: BISACODYL 10MG SUPP PR NR (10:45)
[2018-06-08] MEDS ORDERED: NA PHOS,M-B/NA PHOS,DI-BA ENEMA 118ML PR NR (10:45)
[2018-06-08] MEDS ORDERED: BISACODYL 10MG SUPP PR PRN (10:45)
[2018-06-08] MEDS ORDERED: HYDROMORPHONE HCL/PF 2MG/ML CPJ IV NR (13:30)
[2018-06-08] MEDS ORDERED: POTASSIUM CHLORIDE INJ 40 MEQ in DEXT 5% WATER 250 ML IV NR (15:30)
[2018-06-08] MEDS: HYDROMORPHONE HCL/PF 2MG/ML CPJ IV PRN (20:44)
[2018-06-09] VITALS (7 sets, daily range): BP systolic 95–144; BP diastolic 59–111
[2018-06-09] MEDS: LACTULOSE 20G/30ML UDC PO SCH ×3 (01:20→11:24)
[2018-06-09] MEDS ORDERED: MEROPENEM 1,000 MG in SODIUM CHLORIDE 0.9% 100 ML IV SCH (01:30)
[2018-06-09] MEDS: HYDROMORPHONE HCL/PF 2MG/ML CPJ IV PRN ×3 (04:02→21:43)
[2018-06-09] MEDS: BLOOD SUGAR DIAGNOSTIC STRIP TEST SCH ×4 (06:50→21:44)
[2018-06-09] MEDS ORDERED: HYDROCODONE/ACETAMINOPHEN 5/325MG TABLET PO PRN (08:30)
[2018-06-09] MEDS ORDERED: HYDROMORPHONE HCL/PF 2MG/ML CPJ IV PRN (08:30)
[2018-06-09] MEDS: SEVELAMER CARBONATE 800 MG TABLET PO SCH ×2 (08:52→12:30)
[2018-06-09] MEDS: FOLIC ACID 1MG TABLET PO SCH (08:52)
[2018-06-09] MEDS: THIAMINE HCL 100MG TABLET PO SCH (08:52)
[2018-06-09] MEDS: CYANOCOBALAMIN 1000MCG TABLET PO SCH (08:52)
[2018-06-09] MEDS: RIFAXIMIN 550 MG TABLET PO SCH ×2 (08:52→21:43)
[2018-06-09] MEDS: INSULIN LISPRO 100 UNITS/ML SUBCUT SCH ×4 (09:00→21:00)
[2018-06-09] MEDS: INSULIN GLARGINE UD 100 UNITS/ML SYR SUBCUT SCH ×2 (11:24→22:00)
[2018-06-09] MEDS ORDERED: HYDROCODONE/ACETAMINOPHEN 10/325MG TABLET PO PRN (13:45)
[2018-06-09] MEDS ORDERED: METOCLOPRAMIDE HCL 10MG/2ML VIAL IV SCH (18:00)
[2018-06-09] MEDS ORDERED: LACTULOSE 20G/30ML UDC PO SCH (22:00)
[2018-06-10] VITALS: BP 59/36
== END 2018-06-10 00:53 | disposition expired | DRG 720 ==
LOC: ER 11:13 → ENRESERV 13:21 → 6EST 14:10 → EDBEDREQ 14:18 → EDBEDREQTM 14:18 → 5EST 05-24 05:56 → 5WST 06-01 11:35 → 6WST 06-06 11:24 → CVICU 06-06 16:07 → 6EST 06-08 16:41
PROVIDERS: ADMIT Internal Medicine; ATTEND Internal Medicine
PROC: 02HV33Z Insertion of Infusion Device into Superior Vena Cava, Percutaneous Approach (ICD-10-PCS; 2018-06-06)
PROC: B5181ZA Fluoroscopy of Superior Vena Cava using Low Osmolar Contrast, Guidance (ICD-10-PCS; 2018-06-06)
PROC: B548ZZA Ultrasonography of Superior Vena Cava, Guidance (ICD-10-PCS; 2018-06-06)
PROC: 30233L1 Transfusion of Nonautologous Fresh Plasma into Peripheral Vein, Percutaneous Approach (ICD-10-PCS; principal; 2018-06-07)
PROC: 30233K1 Transfusion of Nonautologous Frozen Plasma into Peripheral Vein, Percutaneous Approach (ICD-10-PCS; 2018-06-07)
PROC: 0W9G30Z Drainage of Peritoneal Cavity with Drainage Device, Percutaneous Approach (ICD-10-PCS; 2018-06-07)
DX: A41.51 Sepsis due to Escherichia coli [E. coli] (principal); N17.0 Acute kidney failure with tubular necrosis; K65.9 Peritonitis, unspecified; D61.818 Other pancytopenia; G92 Toxic encephalopathy; I13.0 Hypertensive heart and chronic kidney disease with heart failure and stage 1 through stage 4 chronic kidney disease, or unspecified chronic kidney disease; E11.22 Type 2 diabetes mellitus with diabetic chronic kidney disease; E11.51 Type 2 diabetes mellitus with diabetic peripheral angiopathy without gangrene; I50.9 Heart failure, unspecified; K56.7 Ileus, unspecified; E44.1 Mild protein-calorie malnutrition; R18.8 Other ascites; N39.0 Urinary tract infection, site not specified; K74.60 Unspecified cirrhosis of liver; E83.39 Other disorders of phosphorus metabolism; E86.9 Volume depletion, unspecified; E87.1 Hypo-osmolality and hyponatremia; F17.210 Nicotine dependence, cigarettes, uncomplicated; K21.9 Gastro-esophageal reflux disease without esophagitis; K42.9 Umbilical hernia without obstruction or gangrene; K72.90 Hepatic failure, unspecified without coma; N18.3 Chronic kidney disease, stage 3 (moderate); Z51.5 Encounter for palliative care; Z79.84 Long term (current) use of oral hypoglycemic drugs; Z68.35 Body mass index [BMI] 35.0-35.9, adult; Z86.73 Personal history of transient ischemic attack (TIA), and cerebral infarction without residual deficits; Z90.49 Acquired absence of other specified parts of digestive tract
CPT/HCPCS: 36415; 36556; 36600; 49083; 70551; 71045; 74018; 74176; 76705; 76770; 76937; 77001; 77002; 80048; 80076; 80305; 82140; 82150; 82375; 82533; 82570; 82805; 82962; 83605; 83735; 83880; 83930; 83935; 84100; 84145; 84300; 84439; 84443; 84484; 84550; 85384; 86705; 86709; 86803; 86850; 86900; 86927; 87077; 87186; 87340; 93005; 93306; 93970; 96365; 96375; 97116; 97162; 97530; 99291; C1752; G0482; J0696; J1170; J1642; J1644; J1815; J2185; J2405; J2543; J2765; J3480; J3490; J7030; J7040; J7042; J7050; J7060; P9017; P9047; Q0162; A4315